=== PATIENT | female | born 1990 ===

== ENCOUNTER 2022-06-05 18:13 | Emergency (ER) | payer SELFPAY ==
[~2022-06-05] VITALS: Ht 157.5 cm; Wt 77.1 kg
[2022-06-05] MEDS ORDERED: CIPRODEX OTIC7.5 M1 RIGHTEAR (19:06)
== END 2022-06-05 19:16 | disposition home or self-care (01) ==
LOC: ER 18:13
DX: T16.1XXA Foreign body in right ear, initial encounter (principal); X58.XXXA Exposure to other specified factors, initial encounter
CPT/HCPCS: 69200; 99283-25